=== PATIENT | female | born 1965 | race Caucasian/White ===

== ENCOUNTER 2016-12-04 20:59 | Emergency (ER) | payer MEDICARE, OTHER ==
[2016-12-04 21:37] LABS: HEMOGLOBIN 12.3 gm/dl (12.3-15.3); RED BLOOD COUNT 4.19 M/UL (4.00-5.10); WHITE BLOOD COUNT 6.2 K/UL (4.5-11.0)
[2016-12-04 21:58] LABS: BUN/CREATININE RATIO 6 (0-10)
== END 2016-12-04 23:22 | disposition home or self-care (01) ==
LOC: ER1 20:59
PROVIDERS: Emergency Medicine
DX: R41.82 Altered mental status, unspecified (principal); Z88.8 Allergy status to other drugs, medicaments and biological substances
CPT/HCPCS: 36415; 70450; 71010; 80053; 82550; 82553; 82962; 83874; 84484; 85025; 85610; 85730; 93005; 96360; 99285; G0480